=== PATIENT | female | born 1995 | race Native Hawaiian/Other Pacific Islander ===

== ENCOUNTER → 2019-04-13 | Outpatient (CLI) | payer MEDICAID ==
--- NOTE | 2019-04-13 16:03 | Diagnostic Imaging Report ---
INDICATION: Followup fetus. TECHNIQUE: Multiple real-time grayscale images were obtained over the gravid uterus. COMPARISON: None FINDINGS: There are no prior studies available for comparison. The report from the ultrasound exam performed at [facility] on 03/08/2019 was reviewed. That study noted a single 2nd trimester with a gestational age of approximately 20 weeks 3 days. The anatomic survey was limited due to positioning and the maternal body habitus. The cisterna magna, kidneys, heart and diaphragm could not be adequately visualized. There is a single live fetus in cephalic presentation. heart motion was noted and a rate of 160 BPM was recorded. There were no abnormalities identified. However the intracranial contents, the three-vessel cord, the spine, and the cord insertion were not well-visualized. The heart was identified and appeared to be within normal limits. This exam was technically difficult due to the patient's body habitus. The placenta is posterior and there is no previa. The amniotic fluid volume is at the upper limits of normal at 19.1 cm (normal 8 - 22 cm). The cervix was identified and measures 4.0 cm in length. The growth parameters were not obtained. IMPRESSION: 1. There is a single live fetus in cephalic presentation. 2. There were no abnormalities identified but the three-vessel cord, the spine, the cord insertion and intracranial contents were not well visualized. The heart does appear to be within normal limits. 3. A short-term (2-4 week) follow-up ultrasound exam would be recommended for further evaluation. Dictated on workstation # [id number]
== END ==
LOC: RAD 09:44
PROVIDERS: ATTEND Family Medicine
DX: Z34.92 Encounter for supervision of normal pregnancy, unspecified, second trimester (principal); Z3A.20 20 weeks gestation of pregnancy
CPT/HCPCS: 76816

== ENCOUNTER → 2019-05-25 | Outpatient (CLI) | payer MEDICAID ==
[~2019-05-25] MED LIST: PREN-142 PO
--- NOTE | 2019-05-25 11:50 | Diagnostic Imaging Report ---
INDICATION: Evaluate anatomy, not seen on prior sonogram. TECHNIQUE: Multiple real-time grayscale images were obtained over the gravid uterus. COMPARISON: 04/13/2019. FINDINGS: The previous OB ultrasound exam of 04/13/2019 noted a single live fetus in cephalic presentation. There were no abnormalities identified, but the three-vessel cord, the spine, the cord insertion, and the intracranial contents were not well visualized. On this exam, the fetus is again visualized. The fetus is cephalic in presentation. heart motion was noted, and a rate of 156 BPM was recorded. The three-vessel cord, the cord insertion, and the spine were visualized and within normal limits. However, the intracranial contents were still poorly evaluated due to lie and to the maternal body habitus. No other abnormality is noted. The growth parameters were not obtained for this study. According to an outside exam, the estimated gestational age is now approximately 32 weeks 2 days with an EDC of July 20, 2019. Correlation with the patient's previous study would be recommended. The placenta is posterior, and there is no previa. The amniotic fluid volume is within normal limits. IMPRESSION: 1. There is a single live fetus in cephalic presentation. 2. There were no abnormalities identified, but the intracranial contents were still not well visualized. 3. The growth parameters were not obtained for this exam. Recommendations as above. Dictated by: Dictated on workstation # [id number]
== END ==
LOC: RAD 10:08
PROVIDERS: ATTEND Family Medicine
DX: Z36.9 Encounter for antenatal screening, unspecified (principal); Z3A.32 32 weeks gestation of pregnancy
CPT/HCPCS: 76816

== ENCOUNTER 2019-05-27 12:37 | Inpatient (IN) | payer MEDICAID ==
[2019-05-27] VITALS (13 sets, daily range): BP systolic 154–197; BP diastolic 71–97
[~2019-05-27] VITALS: Ht 162.6 cm; Wt 156.6 kg
--- NOTE | 2019-05-27 12:40 | NUR ---
24 hour urine initiated.
--- NOTE | 2019-05-27 12:50 | NUR ---
SONIA VAZQUEZ presented to unit via ambulation from ED, accompanied by staff, with high BP. SONIA VAZQUEZ weighed, gowned, voided, and to bed. EFHM and TOCO applied, VS taken. SONIA VAZQUEZ oriented to bed controls, call light, TV, heat, and A/C controls.
[2019-05-27 13:40] LABS: BASOPHILS % (AUTO) 0 % (0-10); EOSINOPHILS # (AUTO) 0.1 10^3/uL (0.0-0.3); EOSINOPHILS % (AUTO) 1 % (0-10); HEMATOCRIT 33 % (35-52); HEMOGLOBIN 10.9 G/DL (11.5-16.0); LYMPHOCYTES # (AUTO) 2.2 X 10^3 (1.0-4.0); LYMPHOCYTES % (AUTO) 25 % (12-44); MEAN CORPUSCULAR HEMOGLOBIN 30 PG (25-34); MEAN CORPUSCULAR HGB CONC 33 G/DL (32-36); MEAN CORPUSCULAR VOLUME 89 FL (80-99); MEAN PLATELET VOLUME 10.3 FL (7.4-10.4); MONOCYTES % (AUTO) 11 % (0-12); NEUTROPHILS # (AUTO) 5.5 X 10^3 (1.8-7.8); NEUTROPHILS % (AUTO) 63 % (42-75); PLATELET COUNT 238 10^3/uL (130-400); WHITE BLOOD COUNT 8.8 10^3/uL (4.3-11.0)
[2019-05-27 14:01] LABS: ALANINE AMINOTRANSFERASE 22 U/L (0-55); ALBUMIN 3.1 GM/DL (3.2-4.5); ALKALINE PHOSPHATASE 72 U/L (40-136); BILIRUBIN,TOTAL 0.2 MG/DL (0.1-1.0); BUN/CREATININE RATIO 12; CALCIUM 8.6 MG/DL (8.5-10.1); CARBON DIOXIDE 20 MMOL/L (21-32); CHLORIDE 110 MMOL/L (98-107); CREATININE SERUM 0.75 MG/DL (0.60-1.30); GFR ESTIMATED > 60; GLUCOSE 74 MG/DL (70-105); SODIUM 139 MMOL/L (135-145); TOTAL PROTEIN 6.7 GM/DL (6.4-8.2); URIC ACID 5.8 MG/DL (2.6-7.2)
--- NOTE | 2019-05-27 15:14 | NUR ---
Notified Dr Gan of lab values, blood pressures, reactive NST. "o" received. Will transfer pt to [place]. to start Magnesium sulfate,betamethasone,labetalol and place rose cath.
[2019-05-27] MEDS ORDERED: LABETALOL HCL 20 MG/4 ML VIAL ONE (15:21)
[2019-05-27] MEDS ORDERED: BETAMETHASONE ACE/NA PHOS 6 MG/ML (CELESTONE SOLUSPAN) ONE (15:21)
[2019-05-27] MEDS ORDERED: LACTATED RINGERS 1,000 ML IV ONE (15:22)
[2019-05-27] MEDS ORDERED: MAGNESIUM SULFATE DRIP 500 ML IV ONE (15:22)
[2019-05-27] MEDS ORDERED: MAGNESIUM 4 GM/100 ML IVPB 100 ML IV ONE ×2 (15:22→15:30)
[2019-05-27] MEDS ORDERED: BETAMETHASONE ACE/NA PHOS 6 MG/ML (CELESTONE SOLUSPAN) IM SCH (15:30)
[2019-05-27] MEDS ORDERED: MAGNESIUM SULFATE DRIP 500 ML IV SCH (15:30)
[2019-05-27] MEDS ORDERED: LABETALOL HCL 20 MG/4 ML VIAL IV NR (15:30)
--- NOTE | 2019-05-27 15:30 | NUR ---
[facility] to accept patient. room #8 on Labor and delivery. Pt instructed on transfer,IV,meds, rose and Dx. Questions answered. Pt verbalized understanding.
--- NOTE | 2019-05-27 15:50 | NUR ---
Dr Gan here to see pt.
[2019-05-27] MEDS ORDERED: PREN-142 PO (15:59)
--- NOTE | 2019-05-27 16:01 | History & Physical-OB ---
OB - Chief Complaint & HPI Date/Time Date of Admission: Date of Admission: May 27, 2019 at 12:40 Date seen by a Provider: May 27, 2019 Time Seen by a Provider: 11:45 Chief Complaint/History Hx : 2 Hx Para: 0 Expected Date of Delivery: Jul 28, 2019 Gestational Age in Weeks: 31 Gestational Age in Days: 3 Other reason for admission: 23 yo at 31 weeks presented to clinic for visit and noted to have BP 140/90 and 2+ protein on urine dip, along with report of headache and RUQ pain x 2-3 days or more. She denies vision changes. History of Labs A+, antibody pos at initial test but unable to type, repeat antibody neg. RI, HIV/HepB/RPR NR. GC and chlamydia both positive- treated 05/27/19. Pap LSIL. 1 hour glucola negative at 27 weeks. Allergies and Home Medications Allergies Coded Allergies: No Known Drug Allergies (Unverified , 05/27/19) Home Medications Vit No.124/Iron/FA 1 Each Tablet, 1 EACH PO DAILY, (Reported) Patient Home Medication List Home Medication List Reviewed: Yes OB - History Hx of Present Care: Yes Ultrasounds: Abnormal US findings (incomplete in spite of 3 attempts, thought to be secondary to body habitus- incompletely viewed cisterna magna and kid neys.) Obstetrical History Hx : 2 Hx Para: 0 Hx Total # of Abortions (Spona: 1 Patient Past Medical History PMHx: Denies SurgHx: Denies Social History/Family History HIV/AIDS: No Recent Infectious Disease Expo: No Sexually Transmitted Disease: Yes (gonorrhea, chlamydia and HPV) Alcohol Use: Denies Use Recreational Drug Use: No Smoking Cessation: Never smoker 2nd Hand Smoke Exposure: No Immunizations Tetanus Booster (TDap): Less than 5yrs (05/27/2019) Rubella: immune RPR/VDRL: Negative GBS Status: Unknown HBsAG: Negative OB - Admission Exam Physical Exam Vitals: Vital Signs 05/27/19 05/27/19 14:20 14:31 Temp 37.1 Pulse 83 Resp 18 B/P (MAP) 170/93 (118) Pulse Ox 99 O2 Delivery Room Air HEENT: NCAT Heart: Rhythm Normal Lungs: Clear Abdomen: Other (gravid, moderate to marked RUQ ttp, mild uterine ttp) Extremities: Edema (2+) Reflexes: Normal Heart Rate: 150's Contractions on Admission: None OB - Assessment/Plan/Diagnosis Assessment Admission Dx Elevated blood pressure Proteinuria 31 weeks gestation Third trimester Morbid obesity Gonorrhea infection Chlamydia infection Admission Status: Observation Plan Other Plan Check STAT preeclampsia labs and monitor BP closely, discussed with patient possible/likely need for transfer particularly if any severe features found on evaluation. ANN MARIE BASURTO MD May 27, 2019 16:01
--- NOTE | 2019-05-27 16:10 | Discharge Summary ---
Discharge Summary Hospital Course Hospital Course Date of Admission: May 27, 2019 at 12:40 Admission Diagnosis : Elevated blood pressure in third trimester Proteinuria in third trimester 31 weeks gestation Third trimester Morbid obesity Gonorrhea infection Chlamydia infection Family Physician/Provider: Ann Marie Gan MD Date of Discharge: 05/27/19 Discharge Diagnosis: Preeclampsia with severe features 31 weeks gestation Third trimester Morbid obesity Gonorrhea infection Chlamydia infection Hospital Course: Pt was initially seen in clinic and treated for positive GC/chlamydia tests with azithromycin and ceftriaxone (on 05/27/19), found to have BP 140/90 in clinic with symptoms concerning for preeclampsia and 2+ protein on urine dip. Admitted for further evaluation and found to have blood pressure elevated in severe range as well as protein/creatinine ratio 0.58 and elevated LDH. Discussed with [employer] on-call at [place] and accepted in transfer. Started on magnesium for neuropro tection and betamethasone initial dose for lung maturity given. Labetalol IV given for severe hypertension. Labs and Pending Lab Test: Laboratory Tests 05/27/19 12:40: Urine Protein 31H, Urine Creatinine 53, Urine Protein/Creatinine Ratio 0.58 05/27/19 13:30: White Blood Count 8.8, Red Blood Count 3.67L, Hemoglobin 10.9L, Hematocrit 33L, Mean Corpuscular Volume 89, Mean Corpuscular Hemoglobin 30, Mean Corpuscular Hemoglobin Concent 33, Red Cell Distribution Width 15.0H, Platelet Count 238, Me an Platelet Volume 10.3, Neutrophils (%) (Auto) 63, Lymphocytes (%) (Auto) 25, Monocytes (%) (Auto) 11, Eosinophils (%) (Auto) 1, Basophils (%) (Auto) 0, Neutrophils # (Auto) 5.5, Lymphocytes # (Auto) 2.2, Monocytes # (Auto) 1.0, Eosinophils # (Auto) 0.1, Basophils # (Auto) 0.0, Sodium Level 139, Potassium Level 4.0, Chloride Level 110H, Carbon Dioxide Level 20L, Anion Gap 9, Blood Urea Nitrogen 9, Creatinine 0.75, Estimat Glomerular Filtration Rate > 60, BUN/Creatinine Ratio 12, Glucose Level 74, Uric Acid 5.8, Calcium Level 8.6, Corrected Calcium 9.3, Total Bilirubin 0.2, Aspartate Amino Transf (AST/SGOT) 27, Alanine Aminotransferase (ALT/SGPT) 22, Alkaline Phosphatase 72, Lactate Dehydrogenase 297H, Total Protein 6.7, Albumin 3.1L Home Meds Active Reported Vitamin Tablet ( Vit No.124/Iron/FA) 1 Each Tablet 1 Each PO DAILY Assessment/Pt DC Instructions Pt transferred to [facility] Physical Examination Allergies: Coded Allergies: No Known Drug Allergies (Unverified , 05/27/19) General Appearance: No Apparent Distress, WD/WN Respiratory: Lungs Clear, Normal Breath Sounds Cardiovascular: Regular Rate, Rhythm, No Murmur Gastrointestinal: Tenderness (RUQ) Extremity: Pedal Edema (2+ to knees) Skin: Normal Color, Warm/Dry Neurologic/Psychiatric: Alert, Normal Mood/Affect Clinical Quality Measures DVT/VTE Risk/Contraindication: Risk Factor Score Per Nursin RFS Level Per Nursing on Admit: 4+=Very High ANN MARIE GAN MD May 27, 2019 16:09
--- NOTE | 2019-05-27 16:12 | NUR ---
Notified DR Gan of B/P 157/[address] [facility]
--- NOTE | 2019-05-27 16:18 | NUR ---
Notified Shift Capt Masood Barger for transfer.
--- NOTE | 2019-05-27 16:21 | NUR ---
Notified [facility] of transfer to [place].
--- NOTE | 2019-05-27 16:28 | NUR ---
Report given to Keila Dennis RN @ [place].
--- NOTE | 2019-05-27 16:44 | NUR ---
This nurse notified Dr Gan pt's mother wanted her to be transfer to [facility]. . Dr Gan spoke with pt's mother via phone. Dr Gan to notify [facility].
--- NOTE | 2019-05-27 16:50 | NUR ---
EMS here to transfer pt.
--- NOTE | 2019-05-27 17:00 | NUR ---
Dr Gan called and Spoke with Dr Rodriguez @ [facility]. Dr Rodriguez accepted pt. Pt room [id number] [address]. [id number] Pt and PT family notified.
--- NOTE | 2019-05-27 17:19 | NUR ---
Gave report to Laurita Morocho RN at [facility]. IV, labs,b/p's.meds and OB history.
--- NOTE | 2019-05-27 17:25 | NUR ---
Pt room # [id number] @ [facility]. Pt and pt's mom informed. Pt verbalized understanding.
--- NOTE | 2019-05-27 17:26 | NUR ---
Pt discharge with EMS. Secured to [facility]. IV in transit and infusing without difficulty . Smith to DD. Pt calm,alert and stable.
== END 2019-05-27 17:26 | disposition short-term general hospital (02) | DRG 832 ==
LOC: WSo 12:37 → LDRP 12:40
PROVIDERS: ADMIT Family Medicine; ATTEND Family Medicine
DX: O14.13 Severe pre-eclampsia, third trimester (principal); O98.313 Other infections with a predominantly sexual mode of transmission complicating pregnancy, third trimester; A54.9 Gonococcal infection, unspecified; A74.9 Chlamydial infection, unspecified; O99.213 Obesity complicating pregnancy, third trimester; E66.01 Morbid (severe) obesity due to excess calories; Z3A.31 31 weeks gestation of pregnancy
CPT/HCPCS: 36415; 80053; 82570; 83615; 84156; 84550; 85025; 86850; 86900; 86901